=== PATIENT | male | born 1970 | race African-American/Black ===

== ENCOUNTER 2018-09-18 13:12 | Emergency (ER) | payer SELFPAY | END 2018-09-18 13:58 | disposition home or self-care (01) | LOC: NAV ERS 13:12 | DX: K62.89 Other specified diseases of anus and rectum (principal); K52.9 Noninfective gastroenteritis and colitis, unspecified; B37.9 Candidiasis, unspecified; B20 Human immunodeficiency virus [HIV] disease; Z79.899 Other long term (current) drug therapy | CPT/HCPCS: 99283 ==

== ENCOUNTER 2018-12-18 14:15 | Emergency (ER) | payer BC, SELFPAY | END 2018-12-18 14:50 | disposition home or self-care (01) | LOC: NAV ERS 14:15 | DX: H00.014 Hordeolum externum left upper eyelid (principal); B20 Human immunodeficiency virus [HIV] disease | CPT/HCPCS: 67700 ==

== ENCOUNTER 2018-12-21 16:34 | Emergency (ER) | payer BC ==
[2018-12-21 17:19] LABS: Bilirubin Negative (Negative); Blood, Urine Trace (Negative); Clarity Clear (Clear); Glucose, Urine (Dipstick) Negative (Negative); Leukocyte Negative (Negative); Nitrite Negative (Negative); Protein, Urine (Dipstick) Trace mg/dL (Neg-Trace); Urobilinogen 0.2 mg/dL (Less than 2)
[2018-12-21 17:44] LABS: #Basophils 0.1 thou/uL (0.0-0.2); #Eosinphils 0.3 thou/uL (0.0-0.7); #Neutrophils 3.6 thou/uL (1.40-6.50); %Basophils 1.2 % (0.0-1.0); %Lymphocytes 49.8 % (21.0-51.0); %Monocytes 10.3 % (0.0-10.0); %Neutrophils 35.7 % (42.0-75.0); ALT (SGPT) 76 U/L (8-55); AST (SGOT) 47 U/L (5-34); Albumin 3.7 g/dL (3.5-5.0); Alkaline Phosphatase 206 U/L (40-110); Anion Gap 13 mmol/L (10-20); BUN (Urea Nitrogen) 41 mg/dL (8.9-20.6); Bilirubin, Total 0.3 mg/dL (0.2-1.2); Calc. Creatinine Clearance 0 mL/min (70-130); Calcium 7.9 mg/dL (7.8-10.44); Carbon Dioxide 11 mmol/L (22-29); Chloride 117 mmol/L (98-107); Estimated GFR-MDRD 21; Globulin 4.1 g/dL (2.4-3.5); Glucose 96 mg/dL (70-105); Hemoglobin 10.8 g/dL (14.0-18.0); Mean Corpuscular HGB CONC 31.1 g/dL (32.0-36.0); Mean Corpuscular Hemoglobin 34.4 pg (27.0-31.0); Mean Platelet Volume 6.8 fL (7.4-10.4); Platelet Count 199 thou/uL (130-400); Protein, Total 7.8 g/dL (6.0-8.3); RBC Distribution Width 15.7 % (11.5-14.5); Red Blood Cell (RBC) Count 3.15 mill/uL (4.70-6.10); Sodium 138 mmol/L (136-145); White Blood Cell (WBC) Count 9.9 thou/uL (4.8-10.8)
[2018-12-21 17:53] LABS: Potassium 2.6 mmol/L (3.5-5.1)
[2018-12-21 17:56] LABS: Bacteria/HPF Rare-Few HPF (None Seen); RBC/HPF None Seen HPF (0-3); Squamous Epithelial 0-3 HPF (0-3); WBC/HPF None Seen HPF (0-3)
[2018-12-21 18:00] LABS: Blister Cells SLIGHT = 2-5 cells (100X) (0-1/hpf); Crenated RBC SLIGHT = 1-5 cells (100X) (None Seen); Helmet Cells SLIGHT = 2-5 cells (100X) (0-1/hpf); MDiff Complete? YES; Macrocytosis MODERATE=16-30 cells (100X) (0-5/hpf); Platelet Morphology Comment Appears Adequate; Poikilocytosis SLIGHT = 6-15 cells (100X) (0-5/hpf)
[2018-12-21] MEDS ORDERED: Potassium Chloride 10 MEQ/100 ML PREMIX BAG ONE ×2 (18:10→18:18)
== END 2018-12-21 19:08 | disposition short-term general hospital (02) ==
LOC: NAV ERS 16:34
DX: E87.6 Hypokalemia (principal); B20 Human immunodeficiency virus [HIV] disease; N17.9 Acute kidney failure, unspecified; N28.9 Disorder of kidney and ureter, unspecified; R19.7 Diarrhea, unspecified; I95.9 Hypotension, unspecified
CPT/HCPCS: 36415; 80053; 81003; 81015; 83735; 85025; 96365; J3480

== ENCOUNTER 2019-03-05 14:38 | Emergency (ER) | payer BC ==
[2019-03-05] MEDS ORDERED: Ondansetron PF 4 MG/2 ML Vial ONE (15:01)
[2019-03-05] MEDS ORDERED: Morphine 4 MG/ML VIAL ONE (15:03)
[2019-03-05] MEDS ORDERED: Sodium Chloride 0.9% 1,000 ML ONE (15:03)
[2019-03-05 15:44] LABS: ALT (SGPT) 46 U/L (8-55); AST (SGOT) 35 U/L (5-34); Alkaline Phosphatase 146 U/L (40-110); Anion Gap 12 mmol/L (10-20); BUN (Urea Nitrogen) 44 mg/dL (8.9-20.6); Bilirubin, Total 0.3 mg/dL (0.2-1.2); Calc. Creatinine Clearance 0 mL/min (70-130); Calcium 7.1 mg/dL (7.8-10.44); Carbon Dioxide 10 mmol/L (22-29); Chloride 123 mmol/L (98-107); Estimated GFR-MDRD 19; Globulin 3.7 g/dL (2.4-3.5); Glucose 100 mg/dL (70-105); Lipase 82 U/L (8-78); Protein, Total 6.7 g/dL (6.0-8.3); Sodium 142 mmol/L (136-145)
[2019-03-05 15:45] LABS: CK (CPK) 53 U/L (30-200); CRP (Inflammatory) Less than 0.50 mg/dL (= or < 0.5)
[2019-03-05 15:46] LABS: Potassium 2.5 mmol/L (3.5-5.1)
[2019-03-05 15:57] LABS: #Basophils 0.1 thou/uL (0.0-0.2); #Eosinphils 0.2 thou/uL (0.0-0.7); #Monocytes 0.9 thou/uL (0.11-0.59); #Neutrophils 3.6 thou/uL (1.40-6.50); %Eosinophils 1.7 % (0.0-10.0); %Lymphocytes 53.7 % (21.0-51.0); %Monocytes 8.8 % (0.0-10.0); %Neutrophils 34.8 % (42.0-75.0); Anisocytosis MARKED = >30 cells (100X) (0-5/hpf); Differential Comment SCANNED NO NBBC; Hemoglobin 7.9 g/dL (14.0-18.0); MDiff Complete? YES; Macrocytosis MARKED = >30 cells (100X) (0-5/hpf); Mean Corpuscular HGB CONC 31.8 g/dL (32.0-36.0); Mean Corpuscular Hemoglobin 33.9 pg (27.0-31.0); Mean Platelet Volume 7.4 fL (7.4-10.4); Platelet Count 173 thou/uL (130-400); Poikilocytosis SLIGHT = 6-15 cells (100X) (0-5/hpf); RBC Distribution Width 18.4 % (11.5-14.5); Red Blood Cell (RBC) Count 2.34 mill/uL (4.70-6.10); Target Cells MODERATE= 6-15 cells (100X) (0-1/hpf); Tear Drops SLIGHT = 2-5 cells (100X) (0-1/hpf); White Blood Cell (WBC) Count 10.3 thou/uL (4.8-10.8)
[2019-03-05] MEDS ORDERED: Potassium Chloride 10 MEQ/100 ML PREMIX BAG ONE (16:05)
[2019-03-05] MEDS ORDERED: Lactated Ringer's 1,000 ML ONE (16:14)
[2019-03-05] MEDS ORDERED: Fentanyl 100 MCG/2 ML VIAL ONE (16:17)
[2019-03-05 17:49] LABS: Base Excess (BEa) POC ABG -16.4 mmol/L (0 (+/- 2.5)); Hemoglobin POC ABG 7.5 g/dL (12.0-17.0); Potassium POC ABG 2.2 mmol/L (3.5-4.5); pH (Arterial) 7.239 (7.35-7.45)
[2019-03-05 17:50] LABS: Calcium, Ionized 1.15 mmol/L (1.15-1.33)
--- NOTE | 2019-03-05 18:03 | CT ---
CT abdomen and pelvis noncontrast HISTORY: Left flank pain. COMPARISON: 08/05/2018. FINDINGS: Moderate distention of the left renal collecting system and ureter is similar in appearance to the prior study. At the distal ureter, an oval calcification measuring 0.8 cm x 0.5 cm is now better delineated. The ureter remains distended beyond this point. This stone is favored to not be ca using an obstruction. At the inferior pole of the left kidney, calculi are 1.0 cm and 0.9 cm greatest diameters. Right renal collecting system, ureter, and urinary bladder are decompressed without stone apparent. Lack of contrast limits evaluation for other abnormalities. Tiny cyst at the posterior cortex of the right kidney. Tiny nonspecific calcified lesion at the right central lung base. IMPRESSION: Chronic left ureteral distention. An oval 0.8 cm calculus remains within the patulous dis angel left ureter. Favored to not be causing obstruction. Additional nonobstructing left renal calculi.
[2019-03-05 18:04] LABS: Bilirubin Negative (Negative); Blood, Urine Trace (Negative); Clarity Clear (Clear); Glucose, Urine (Dipstick) Negative (Negative); Leukocyte Negative (Negative); Nitrite Negative (Negative); Protein, Urine (Dipstick) 30 mg/dL (Neg-Trace); Urobilinogen 0.2 mg/dL (Less than 2)
[2019-03-05 18:14] LABS: Amphetamine Not Detected (NotDetected); Barbiturates Screen Not Detected (NotDetected); Benzodiazepine Screen Not Detected (NotDetected); Cocaine Metabolite Screen Not Detected (NotDetected); Medtox Control Line Valid? VALID (VALID); Methadone Not Detected (NotDetected); Methamphetamine Not Detected (NotDetected); Opiate Screen Detected (NotDetected); Oxycodone Screen Not Detected (NotDetected); Phencyclidine (PCP) Not Detected (NotDetected); THC/Cannabinoid Screen Not Detected (NotDetected); Tricyclic Screen Not Detected (NotDetected)
[2019-03-05 18:16] LABS: RBC/HPF None Seen HPF (0-3); WBC/HPF 0-3 HPF (0-3)
== END 2019-03-05 19:34 | disposition short-term general hospital (02) ==
LOC: NAV ERS 14:38
DX: E87.6 Hypokalemia (principal); N17.9 Acute kidney failure, unspecified; B20 Human immunodeficiency virus [HIV] disease; E86.9 Volume depletion, unspecified; N20.2 Calculus of kidney with calculus of ureter; Z79.899 Other long term (current) drug therapy
CPT/HCPCS: 74176; 80053; 80306; 81003; 81015; 82330; 82550; 82803; 83605; 83690; 83735; 85025; 86140; 93005; 96361; 96365; 96366; 96375; J2270; J2405; J3010; J3480; J7050; J7120

== ENCOUNTER 2019-06-13 16:20 | Emergency (ER) | payer BC ==
[2019-06-13 17:47] LABS: ALT (SGPT) 51 U/L (8-55); AST (SGOT) 44 U/L (5-34); Albumin 3.4 g/dL (3.5-5.0); Alkaline Phosphatase 138 U/L (40-110); Anion Gap 13 mmol/L (10-20); BUN (Urea Nitrogen) 30 mg/dL (8.9-20.6); Bilirubin, Total 0.2 mg/dL (0.2-1.2); CK (CPK) 39 U/L (30-200); Calc. Creatinine Clearance 0 mL/min (70-130); Calcium 7.7 mg/dL (7.8-10.44); Carbon Dioxide 11 mmol/L (22-29); Chloride 121 mmol/L (98-107); Estimated GFR-MDRD 26; Globulin 4.1 g/dL (2.4-3.5); Glucose 77 mg/dL (70-105); Potassium 4.3 mmol/L (3.5-5.1); Protein, Total 7.5 g/dL (6.0-8.3); Sodium 141 mmol/L (136-145)
[2019-06-13] MEDS ORDERED: Acetaminophen 500 MG TAB ONE (19:02)
== END 2019-06-13 20:30 | disposition home or self-care (01) ==
LOC: NAV ERS 16:20
DX: E86.0 Dehydration (principal); B20 Human immunodeficiency virus [HIV] disease; Z79.899 Other long term (current) drug therapy
CPT/HCPCS: 80053; 82550; 96360; 96361

== ENCOUNTER 2019-11-28 09:50 | Emergency (ER) | payer BC ==
[2019-11-28 11:02] LABS: #Eosinphils 0.1 thou/uL (0.0-0.7); #Neutrophils 4.4 thou/uL (1.40-6.50); %Basophils 0.6 % (0.0-1.0); %Eosinophils 0.7 % (0.0-10.0); %Lymphocytes 26.7 % (21.0-51.0); %Monocytes 12.9 % (0.0-10.0); Hemoglobin 8.8 g/dL (14.0-18.0); Mean Corpuscular HGB CONC 31.3 g/dL (32.0-36.0); Mean Corpuscular Hemoglobin 33.3 pg (27.0-31.0); Mean Platelet Volume 6.8 fL (7.4-10.4); Platelet Count 272 thou/uL (130-400); RBC Distribution Width 16.7 % (11.5-14.5); Red Blood Cell (RBC) Count 2.64 mill/uL (4.70-6.10); White Blood Cell (WBC) Count 7.5 thou/uL (4.8-10.8)
[2019-11-28 11:11] LABS: ALT (SGPT) 67 U/L (8-55); AST (SGOT) 52 U/L (5-34); Albumin 3.4 g/dL (3.5-5.0); Alkaline Phosphatase 143 U/L (40-110); Anion Gap 13 mmol/L (10-20); BUN (Urea Nitrogen) 45 mg/dL (8.9-20.6); Bilirubin, Total 0.3 mg/dL (0.2-1.2); Calc. Creatinine Clearance 0 mL/min (70-130); Calcium 6.8 mg/dL (7.8-10.44); Carbon Dioxide 11 mmol/L (22-29); Chloride 120 mmol/L (98-107); Estimated GFR-MDRD 25; Globulin 3.9 g/dL (2.4-3.5); Glucose 93 mg/dL (70-105); Magnesium 1.2 mg/dL (1.6-2.6); Protein, Total 7.3 g/dL (6.0-8.3); Sodium 141 mmol/L (136-145)
[2019-11-28 11:12] LABS: Potassium 2.7 mmol/L (3.5-5.1)
[2019-11-28] MEDS ORDERED: Magnesium 2 GM/50 ML BAG (IN WATER) ONE (11:27)
[2019-11-28] MEDS ORDERED: NS 0.9% w/ 20 MEQ KCL 1,000 ML ONE (11:29)
[2019-11-28 12:46] LABS: Phosphorus Less than 1.0 mg/dL (2.3-4.7)
== END 2019-11-28 14:40 | disposition short-term general hospital (02) ==
LOC: NAV ERS 09:50
DX: E87.6 Hypokalemia (principal); E83.42 Hypomagnesemia; E83.39 Other disorders of phosphorus metabolism; B20 Human immunodeficiency virus [HIV] disease; Z79.899 Other long term (current) drug therapy; Z87.442 Personal history of urinary calculi
CPT/HCPCS: 80053; 83735; 84100; 85025; 96365; 96366; 96368; J3475; J3480

== ENCOUNTER 2020-05-17 08:42 | Emergency (ER) | payer OTHER | END 2020-05-17 09:15 | disposition home or self-care (01) | LOC: NAV ERS 08:42 | DX: H00.15 Chalazion left lower eyelid (principal) | CPT/HCPCS: 99283 ==

== ENCOUNTER 2020-05-24 17:19 | Emergency (ER) | payer OTHER | END 2020-05-24 17:52 | disposition home or self-care (01) | LOC: NAV ERS 17:19 | DX: H00.15 Chalazion left lower eyelid (principal); R22.0 Localized swelling, mass and lump, head; Z21 Asymptomatic human immunodeficiency virus [HIV] infection status; G62.9 Polyneuropathy, unspecified; Z79.899 Other long term (current) drug therapy | CPT/HCPCS: 99283 ==

== ENCOUNTER 2020-05-28 20:50 | Emergency (ER) | payer OTHER, SELFPAY ==
[2020-05-28 21:52] LABS: ALT (SGPT) 105 U/L (8-55); AST (SGOT) 47 U/L (5-34); Albumin 3.1 g/dL (3.5-5.0); Alkaline Phosphatase 329 U/L (40-110); Anion Gap 12 mmol/L (10-20); BUN (Urea Nitrogen) 59 mg/dL (8.9-20.6); Bilirubin, Total 0.4 mg/dL (0.2-1.2); Calc. Creatinine Clearance 0 mL/min (70-130); Calcium 7.9 mg/dL (7.8-10.44); Chloride 120 mmol/L (98-107); Globulin 3.8 g/dL (2.4-3.5); Glucose 79 mg/dL (70-105); Magnesium 1.7 mg/dL (1.6-2.6); Potassium 6.2 mmol/L (3.5-5.1); Protein, Total 6.9 g/dL (6.0-8.3); Sodium 135 mmol/L (136-145)
[2020-05-28 21:54] LABS: Phosphorus 2.3 mg/dL (2.3-4.7)
[2020-05-28 22:03] LABS: Carbon Dioxide 9 mmol/L (22-29)
[2020-05-28 22:27] LABS: Anisocytosis MARKED = >30 cells (100X) (0-5/hpf); Band 1 % (5-11); Eosinophils 15 % (0-10); Hemoglobin 7.6 g/dL (14.0-18.0); Hypochromia SLIGHT = 6-15 cells (100X) (0-5/hpf); Lymphocytes 38 % (21-51); MDiff Complete? YES; Macrocytosis MARKED = >30 cells (100X) (0-5/hpf); Mean Corpuscular HGB CONC 28.2 g/dL (32.0-36.0); Mean Corpuscular Hemoglobin 34.2 pg (27.0-31.0); Mean Platelet Volume 6.9 fL (7.4-10.4); Monocytes 3 % (0-10); Neutrophil 43 % (42-75); Platelet Count 153 thou/uL (130-400); Platelet Morphology Comment Appears Adequate; Poikilocytosis SLIGHT = 6-15 cells (100X) (0-5/hpf); RBC Distribution Width 19.1 % (11.5-14.5); Red Blood Cell (RBC) Count 2.22 mill/uL (4.70-6.10); Target Cells SLIGHT = 2-5 cells (100X) (0-1/hpf); White Blood Cell (WBC) Count 7.1 thou/uL (4.8-10.8)
[2020-05-28 22:44] LABS: Bilirubin Negative (Negative); Blood, Urine Negative (Negative); Clarity Clear (Clear); Glucose, Urine (Dipstick) Negative (Negative); Ketone, Urine Negative (Negative); Leukocyte Negative (Negative); Nitrite Negative (Negative); Protein, Urine (Dipstick) 30 mg/dL (Neg-Trace); Specific Gravity, Urine 1.015 (1.005-1.030); Urobilinogen 0.2 mg/dL (Less than 2); pH, Urine 6.5 (5.0-9.0)
[2020-05-28 22:52] LABS: Squamous Epithelial 0-3 HPF (0-3)
[2020-05-28] MEDS ORDERED: Sodium Bicarb 50 MEQ/50 ML Abboject 8.4% SYRINGE ONE (22:54)
[2020-05-28] MEDS ORDERED: Dextrose 5% in Water 1,000 ML ONE (22:54)
== END 2020-05-29 00:10 | disposition short-term general hospital (02) ==
LOC: NAV ERS 20:50
DX: E87.5 Hyperkalemia (principal); I95.9 Hypotension, unspecified; K58.9 Irritable bowel syndrome, unspecified; Z21 Asymptomatic human immunodeficiency virus [HIV] infection status; G62.9 Polyneuropathy, unspecified; N18.9 Chronic kidney disease, unspecified; Z87.442 Personal history of urinary calculi; Z79.899 Other long term (current) drug therapy
CPT/HCPCS: 80053; 81003; 81015; 83735; 84100; 85025; 93005; 96365; J7070

== ENCOUNTER 2020-07-28 15:56 | Emergency (ER) | payer MEDICARE ==
[2020-07-28 17:15] LABS: #Basophils 0.1 thou/uL (0.0-0.2); #Eosinphils 0.6 thou/uL (0.0-0.7); #Lymphocytes 2.1 thou/uL (1.20-3.40); #Monocytes 0.7 thou/uL (0.11-0.59); #Neutrophils 2.7 thou/uL (1.40-6.50); %Basophils 1.2 % (0.0-1.0); %Eosinophils 10.4 % (0.0-10.0); %Lymphocytes 33.5 % (21.0-51.0); %Monocytes 11.4 % (0.0-10.0); %Neutrophils 43.5 % (42.0-75.0); Hemoglobin 6.5 g/dL (14.0-18.0); Mean Platelet Volume 8.2 fL (7.4-10.4); Platelet Count 119 thou/uL (130-400); RBC Distribution Width 19.7 % (11.5-14.5); Red Blood Cell (RBC) Count 1.97 mill/uL (4.70-6.10); White Blood Cell (WBC) Count 6.2 thou/uL (4.8-10.8)
[2020-07-28 17:24] LABS: ALT (SGPT) 79 U/L (8-55); AST (SGOT) 53 U/L (5-34); Albumin 3.1 g/dL (3.5-5.0); Alkaline Phosphatase 225 U/L (40-110); Anion Gap 13 mmol/L (10-20); BUN (Urea Nitrogen) 59 mg/dL (8.9-20.6); Bilirubin, Total 0.4 mg/dL (0.2-1.2); Calc. Creatinine Clearance 0 mL/min (70-130); Calcium 7.2 mg/dL (7.8-10.44); Carbon Dioxide 14 mmol/L (22-29); Chloride 120 mmol/L (98-107); Globulin 3.4 g/dL (2.4-3.5); Glucose 74 mg/dL (70-105); Magnesium 1.4 mg/dL (1.6-2.6); Potassium 4.3 mmol/L (3.5-5.1); Protein, Total 6.5 g/dL (6.0-8.3); Sodium 143 mmol/L (136-145)
[2020-07-28 17:27] LABS: Hypochromia SLIGHT = 6-15 cells (100X) (0-5/hpf); MDiff Complete? YES; Macrocytosis SLIGHT = 6-15 cells (100X) (0-5/hpf); Platelet Morphology Comment Appears Decreased
[2020-07-28 18:26] LABS: Bilirubin Negative (Negative); Blood, Urine Negative (Negative); Clarity Clear (Clear); Glucose, Urine (Dipstick) Negative (Negative); Ketone, Urine Negative (Negative); Leukocyte Negative (Negative); Nitrite Negative (Negative); Protein, Urine (Dipstick) 30 mg/dL (Neg-Trace); Specific Gravity, Urine 1.015 (1.005-1.030); Urobilinogen 0.2 mg/dL (Less than 2)
[2020-07-28 18:41] LABS: Bacteria/HPF None Seen HPF (None Seen); RBC/HPF 0-3 HPF (0-3); Squamous Epithelial 0-3 HPF (0-3); WBC/HPF None Seen HPF (0-3)
[2020-07-28] MEDS ORDERED: Sodium Chloride 0.9% 500 ML ONE ×2 (19:00→19:54)
== END 2020-07-28 20:45 | disposition short-term general hospital (02) ==
LOC: NAV ERS 15:56
DX: N18.9 Chronic kidney disease, unspecified (principal); D63.1 Anemia in chronic kidney disease; Z79.899 Other long term (current) drug therapy
CPT/HCPCS: 36415; 36430; 80053; 81003; 81015; 83735; 85025; 86850; 86900; 86901; 99291; J7030; P9016

== ENCOUNTER 2020-10-03 07:57 | Emergency (ER) | payer MEDICARE ==
[2020-10-03] MEDS ORDERED: Ondansetron PF 4 MG/2 ML Vial ONE (08:24)
[2020-10-03 08:57] LABS: ALT (SGPT) 101 U/L (8-55); AST (SGOT) 45 U/L (5-34); Albumin 3.3 g/dL (3.5-5.0); Alkaline Phosphatase 341 U/L (40-110); Anion Gap 11 mmol/L (10-20); BUN (Urea Nitrogen) 58 mg/dL (8.9-20.6); Bilirubin, Total 0.4 mg/dL (0.2-1.2); Calc. Creatinine Clearance 0 mL/min (70-130); Chloride 123 mmol/L (98-107); Glucose 76 mg/dL (70-105); Lipase 48 U/L (8-78); Magnesium 1.8 mg/dL (1.6-2.6); Potassium 4.5 mmol/L (3.5-5.1); Protein, Total 7.3 g/dL (6.0-8.3); Sodium 137 mmol/L (136-145)
[2020-10-03] MEDS ORDERED: Sodium Chloride 0.9% 1,000 ML BAG ONE (09:00)
[2020-10-03 09:06] LABS: Hemoglobin 9.5 g/dL (14.0-18.0); Mean Corpuscular HGB CONC 29.6 g/dL (32.0-36.0); Mean Corpuscular Hemoglobin 33.1 pg (27.0-31.0); Platelet Count 151 thou/uL (130-400); RBC Distribution Width 17.5 % (11.5-14.5); Red Blood Cell (RBC) Count 2.88 mill/uL (4.70-6.10); White Blood Cell (WBC) Count 11.9 thou/uL (4.8-10.8)
[2020-10-03 09:08] LABS: Anisocytosis SLIGHT = 6-15 cells (100X) (0-5/hpf); Eosinophils 5 % (0-10); Hypochromia SLIGHT = 6-15 cells (100X) (0-5/hpf); Lymphocytes 57 % (21-51); MDiff Complete? YES; Macrocytosis SLIGHT = 6-15 cells (100X) (0-5/hpf); Monocytes 7 % (0-10); Neutrophil 31 % (42-75); Platelet Morphology Comment Appears Adequate
[2020-10-03 09:28] LABS: Carbon Dioxide 8 mmol/L (22-29)
[2020-10-03] MEDS ORDERED: Sodium Bicarb 50 MEQ/50 ML Abboject 8.4% SYRINGE ONE (09:54)
== END 2020-10-03 11:23 | disposition left against medical advice (07) ==
LOC: NAV ERS 07:57
DX: N17.9 Acute kidney failure, unspecified (principal); E86.0 Dehydration; N18.9 Chronic kidney disease, unspecified; D63.1 Anemia in chronic kidney disease; I95.9 Hypotension, unspecified; Z21 Asymptomatic human immunodeficiency virus [HIV] infection status; Z79.899 Other long term (current) drug therapy
CPT/HCPCS: 80053; 83690; 83735; 85025; 96360; 96361; 96374; J2405; J7050

== ENCOUNTER 2020-10-10 10:04 | Emergency (ER) | payer MEDICARE ==
[2020-10-10] MEDS ORDERED: Acetaminophen 500 MG TAB ONE (10:39)
[2020-10-10] MEDS ORDERED: Sodium Chloride 0.9% 1,000 ML ONE ×3 (11:30→21:25)
[2020-10-10] MEDS ORDERED: Cyclobenzaprine 10 MG TAB ONE (11:30)
[2020-10-10 11:46] LABS: ALT (SGPT) 47 U/L (8-55); AST (SGOT) 34 U/L (5-34); Albumin 2.6 g/dL (3.5-5.0); Alkaline Phosphatase 154 U/L (40-110); Anion Gap 14 mmol/L (10-20); BUN (Urea Nitrogen) 69 mg/dL (8.9-20.6); Bilirubin, Total 0.5 mg/dL (0.2-1.2); Calc. Creatinine Clearance 0 mL/min (70-130); Calcium 7.4 mg/dL (7.8-10.44); Chloride 117 mmol/L (98-107); Globulin 3.8 g/dL (2.4-3.5); Glucose 65 mg/dL (70-105); Magnesium 1.3 mg/dL (1.6-2.6); Protein, Total 6.4 g/dL (6.0-8.3); Sodium 137 mmol/L (136-145)
[2020-10-10 11:53] LABS: Hemoglobin 7.6 g/dL (14.0-18.0); MDiff Complete? YES; Mean Corpuscular HGB CONC 31.3 g/dL (32.0-36.0); Mean Corpuscular Hemoglobin 33.3 pg (27.0-31.0); Mean Platelet Volume 6.3 fL (7.4-10.4); Platelet Count 69 thou/uL (130-400); RBC Distribution Width 16.5 % (11.5-14.5); Red Blood Cell (RBC) Count 2.28 mill/uL (4.70-6.10); White Blood Cell (WBC) Count 20.4 thou/uL (4.8-10.8)
[2020-10-10 11:54] LABS: Anisocytosis SLIGHT = 6-15 cells (100X) (0-5/hpf); Crenated RBC SLIGHT = 1-5 cells (100X) (None Seen); Hypochromia SLIGHT = 6-15 cells (100X) (0-5/hpf); Lymphocytes 14 % (21-51); Macrocytosis SLIGHT = 6-15 cells (100X) (0-5/hpf); Monocytes 5 % (0-10); Neutrophil 81 % (42-75); Platelet Morphology Comment Appears Decreased; Spherocytes SLIGHT = 1-5 cells (100X) (None Seen)
[2020-10-10] MEDS ORDERED: Magnesium 2 GM/50 ML BAG (IN WATER) ONE (12:01)
[2020-10-10 12:02] LABS: Carbon Dioxide 9 mmol/L (22-29)
[2020-10-10] MEDS ORDERED: Sodium Chloride 0.9% 100 ML ONE (12:36)
[2020-10-10] MEDS ORDERED: cefTRIAXone\\ROCEPHIN 1 GM VIAL ONE (12:36)
[2020-10-10 12:46] LABS: Bilirubin Negative (Negative); Blood, Urine Moderate (Negative); Clarity Turbid (Clear); Glucose, Urine (Dipstick) Negative (Negative); Ketone, Urine Negative (Negative); Leukocyte Large (Negative); Nitrite Positive (Negative); Protein, Urine (Dipstick) > or equal to 300 mg/dL (Neg-Trace); Urobilinogen 0.2 mg/dL (Less than 2); pH, Urine 5.5 (5.0-9.0)
[2020-10-10 12:52] LABS: Squamous Epithelial None Seen HPF (0-3); Transitional Epithelial None Seen HPF (None Seen); WBC/HPF Greater Than 50 HPF (0-3)
[2020-10-10 12:53] LABS: Bacteria/HPF 3+ HPF (None Seen); Mucous/LPF 2+ LPF (<2+)
[2020-10-10 15:29] LABS: Lactic Acid 1.8 mmol/L (0.5-2.2)
[2020-10-10 16:38] LABS: SARS-CoV-2 NAA Rapid Test Not Detected (NotDetected)
[2020-10-11 00:17] LABS: Anion Gap 12 mmol/L (10-20); BUN (Urea Nitrogen) 67 mg/dL (8.9-20.6); Calc. Creatinine Clearance 0 mL/min (70-130); Calcium 7.1 mg/dL (7.8-10.44); Chloride 123 mmol/L (98-107); Glucose 65 mg/dL (70-105); Sodium 142 mmol/L (136-145)
[2020-10-11 00:21] LABS: Carbon Dioxide 9 mmol/L (22-29); Potassium 2.4 mmol/L (3.5-5.1)
[2020-10-11] MEDS ORDERED: Potassium Chloride 20 MEQ TAB ONE ×2 (01:03→09:08)
[2020-10-11] MEDS ORDERED: Ondansetron ODT 4 MG TAB ONE (01:08)
[2020-10-11] MEDS ORDERED: Ondansetron PF 4 MG/2 ML Vial ONE ×2 (01:09)
[2020-10-11] MEDS ORDERED: Sodium Bicarb 50 MEQ/50 ML Abboject 8.4% SYRINGE ONE (01:59)
[2020-10-11] MEDS ORDERED: Cyclobenzaprine 10 MG TAB ONE (02:19)
[2020-10-11] MEDS ORDERED: Dextrose 5% in Water 1,000 ML ONE (02:27)
[2020-10-11] MEDS ORDERED: Acetaminophen 500 MG TAB ONE (06:58)
[2020-10-11 08:50] LABS: ALT (SGPT) 35 U/L (8-55); AST (SGOT) 27 U/L (5-34); Albumin 2.2 g/dL (3.5-5.0); Alkaline Phosphatase 120 U/L (40-110); Anion Gap 11 mmol/L (10-20); BUN (Urea Nitrogen) 65 mg/dL (8.9-20.6); Bilirubin, Total 0.5 mg/dL (0.2-1.2); Calc. Creatinine Clearance 0 mL/min (70-130); Calcium 7.3 mg/dL (7.8-10.44); Carbon Dioxide 10 mmol/L (22-29); Chloride 122 mmol/L (98-107); Globulin 3.1 g/dL (2.4-3.5); Glucose 87 mg/dL (70-105); Protein, Total 5.3 g/dL (6.0-8.3); Sodium 140 mmol/L (136-145)
[2020-10-11 08:56] LABS: Potassium 2.6 mmol/L (3.5-5.1)
[2020-10-11 09:00] LABS: Hemoglobin 6.8 g/dL (14.0-18.0); Mean Corpuscular HGB CONC 32.7 g/dL (32.0-36.0); Mean Corpuscular Hemoglobin 33.9 pg (27.0-31.0); Platelet Count 145 thou/uL (130-400); RBC Distribution Width 15.8 % (11.5-14.5); Red Blood Cell (RBC) Count 1.99 mill/uL (4.70-6.10); White Blood Cell (WBC) Count 26.6 thou/uL (4.8-10.8)
[2020-10-11 09:01] LABS: Anisocytosis SLIGHT = 6-15 cells (100X) (0-5/hpf); Band 6 % (5-11); Crenated RBC SLIGHT = 1-5 cells (100X) (None Seen); Hypochromia SLIGHT = 6-15 cells (100X) (0-5/hpf); Lymphocytes 10 % (21-51); MDiff Complete? YES; Macrocytosis SLIGHT = 6-15 cells (100X) (0-5/hpf); Monocytes 5 % (0-10); Neutrophil 79 % (42-75); Platelet Morphology Comment Appears Adequate
[2020-10-11] MEDS ORDERED: Potassium Chloride 10 MEQ/100 ML PREMIX BAG ONE (09:08)
[2020-10-11] MEDS ORDERED: Sodium Chloride 0.9% 1,000 ML ONE (09:09)
[2020-10-11] MEDS ORDERED: Sodium Chloride 0.9% 250 ML 250 ML ONE (09:27)
== END 2020-10-11 10:43 | disposition short-term general hospital (02) ==
LOC: NAV ERS 10:04
DX: A41.9 Sepsis, unspecified organism (principal); N28.9 Disorder of kidney and ureter, unspecified; D64.9 Anemia, unspecified; D69.6 Thrombocytopenia, unspecified; N39.0 Urinary tract infection, site not specified; Z20.822 Contact with and (suspected) exposure to COVID-19; Z79.899 Other long term (current) drug therapy
CPT/HCPCS: 71045; 80048; 80053 ×2; 83605; 83735; 84484; 85025; 87040; 87077; 87086; 87186; 93005; 94760; U0002; 36415; 81003; 81015; 96365; 96367; 96368; 96375; J0696; J2405; J3370; J3475; J3480; J3490; J7050; J7070; Q0162

== ENCOUNTER 2020-11-18 14:36 | Outpatient (CLI) | payer MEDICARE ==
[2020-11-18 14:48] LABS: Bilirubin Negative (Negative); Blood, Urine Moderate (Negative); Clarity Cloudy (Clear); Glucose, Urine (Dipstick) Negative (Negative); Ketone, Urine Negative (Negative); Leukocyte Small (Negative); Nitrite Negative (Negative); Protein, Urine (Dipstick) > or equal to 300 mg/dL (Neg-Trace); Urobilinogen 0.2 mg/dL (Less than 2)
[2020-11-18 15:01] LABS: Bacteria/HPF 2+ HPF (None Seen); Mucous/LPF 1+ LPF (<2+); WBC/HPF Greater Than 50 HPF (0-3); Yeast-Budding 2+ HPF (None Seen)
== END 2020-11-18 14:37 | disposition home or self-care (01) ==
LOC: NAV LABSP 14:36
PROVIDERS: ATTEND Student in an Organized Health Care Education/Training Program
DX: N39.0 Urinary tract infection, site not specified (principal)
CPT/HCPCS: 81001

== ENCOUNTER 2021-02-15 14:43 | Emergency (ER) | payer MEDICARE ==
[2021-02-15] MEDS ORDERED: Sodium Chloride 0.9% 1,000 ML ONE (16:09)
[2021-02-15 16:18] LABS: ALT (SGPT) 44 U/L (8-55); AST (SGOT) 42 U/L (5-34); Albumin 2.8 g/dL (3.5-5.0); Alkaline Phosphatase 188 U/L (40-110); Anion Gap 13 mmol/L (10-20); BUN (Urea Nitrogen) 59 mg/dL (8.4-25.7); Bilirubin, Total 0.4 mg/dL (0.2-1.2); CK (CPK) 29 U/L (30-200); Calc. Creatinine Clearance 0 mL/min (70-130); Calcium 7.7 mg/dL (7.8-10.44); Carbon Dioxide 10 mmol/L (22-29); Chloride 117 mmol/L (98-107); Globulin 4.5 g/dL (2.4-3.5); Glucose 88 mg/dL (70-105); Potassium 3.4 mmol/L (3.5-5.1); Protein, Total 7.3 g/dL (6.0-8.3); Sodium 137 mmol/L (136-145)
[2021-02-15 16:19] LABS: Magnesium 1.5 mg/dL (1.6-2.6)
[2021-02-15 16:31] LABS: Hemoglobin 6.4 g/dL (14.0-18.0); Mean Corpuscular HGB CONC 30.5 g/dL (32.0-36.0); Platelet Count 196 thou/uL (130-400); RBC Distribution Width 17.5 % (11.5-14.5); Red Blood Cell (RBC) Count 1.81 mill/uL (4.70-6.10); White Blood Cell (WBC) Count 6.8 thou/uL (4.8-10.8)
[2021-02-15 16:33] LABS: Phosphorus Less than 1.0 mg/dL (2.3-4.7)
[2021-02-15 16:34] LABS: Anisocytosis SLIGHT = 6-15 cells (100X) (0-5/hpf); Hypochromia SLIGHT = 6-15 cells (100X) (0-5/hpf); Lymphocytes 18 % (21-51); MDiff Complete? YES; Manual Diff?? YES; Monocytes 5 % (0-10); Neutrophil 77 % (42-75)
[2021-02-15 16:35] LABS: Ovalocytes SLIGHT = 2-5 cells (100X) (0-1/hpf); Schistocytes SLIGHT = 2-5 cells (100X) (0-1/hpf)
[2021-02-15 16:36] LABS: Critical Call Chemistry Y
[2021-02-15] MEDS ORDERED: Magnesium 2 GM/50 ML BAG (IN WATER) ONE (17:12)
[2021-02-15] MEDS ORDERED: Dextrose 5% in Water 1,000 ML ONE (17:18)
[2021-02-15] MEDS ORDERED: Sodium Bicarb 50 MEQ/50 ML Abboject 8.4% SYRINGE ONE (17:18)
== END 2021-02-15 18:45 | disposition short-term general hospital (02) ==
LOC: NAV ERS 14:43
DX: E86.0 Dehydration (principal); N18.9 Chronic kidney disease, unspecified; D63.1 Anemia in chronic kidney disease; E87.6 Hypokalemia; E83.39 Other disorders of phosphorus metabolism; B20 Human immunodeficiency virus [HIV] disease; Z79.899 Other long term (current) drug therapy
CPT/HCPCS: 36415; 80053; 82550; 83605; 83735; 84100; 85025; 93005; 94760; 96365; 96367; J3475; J7050; J7070

== ENCOUNTER 2021-03-03 14:51 | Emergency (ER) | payer MEDICARE ==
[2021-03-04 17:11] LABS: SARS-CoV-2 PCR by NAA DETECTED (NotDetected)
== END 2021-03-03 15:27 | disposition home or self-care (01) ==
LOC: NAV ERS 14:51
DX: U07.1 COVID-19 (principal)
CPT/HCPCS: 99283; U0003; U0005

== ENCOUNTER 2021-03-23 11:28 | Emergency (ER) | payer MEDICARE ==
[2021-03-23] MEDS ORDERED: Acetaminophen 500 MG TAB ONE (11:46)
[2021-03-23 12:37] LABS: ALT (SGPT) 22 U/L (8-55); AST (SGOT) 43 U/L (5-34); Albumin 2.2 g/dL (3.5-5.0); Alkaline Phosphatase 213 U/L (40-110); Anion Gap 11 mmol/L (10-20); BUN (Urea Nitrogen) 53 mg/dL (8.4-25.7); Bilirubin, Total 0.4 mg/dL (0.2-1.2); Calc. Creatinine Clearance 0 mL/min (70-130); Calcium 7.3 mg/dL (7.8-10.44); Carbon Dioxide 17 mmol/L (22-29); Chloride 111 mmol/L (98-107); Globulin 3.8 g/dL (2.4-3.5); Glucose 91 mg/dL (70-105); Lipase 48 U/L (8-78); Potassium 5.2 mmol/L (3.5-5.1); Sodium 134 mmol/L (136-145)
[2021-03-23 12:39] LABS: #Eosinphils 2.1 thou/uL (0.0-0.7); #Lymphocytes 1.1 thou/uL (1.20-3.40); #Monocytes 0.9 thou/uL (0.11-0.59); #Neutrophils 5.2 thou/uL (1.40-6.50); %Basophils 0.3 % (0.0-1.0); %Eosinophils 22.6 % (0.0-10.0); %Lymphocytes 11.7 % (21.0-51.0); %Monocytes 9.5 % (0.0-10.0); %Neutrophils 55.8 % (42.0-75.0); Hemoglobin 7.6 g/dL (14.0-18.0); MDiff Complete? YES; Mean Corpuscular HGB CONC 30.7 g/dL (32.0-36.0); Mean Corpuscular Hemoglobin 33.7 pg (27.0-31.0); Mean Platelet Volume 6.4 fL (7.4-10.4); Platelet Count 92 thou/uL (130-400); RBC Distribution Width 15.6 % (11.5-14.5); Red Blood Cell (RBC) Count 2.25 mill/uL (4.70-6.10); White Blood Cell (WBC) Count 9.3 thou/uL (4.8-10.8)
[2021-03-23 12:40] LABS: Anisocytosis SLIGHT = 6-15 cells (100X) (0-5/hpf); Hypochromia SLIGHT = 6-15 cells (100X) (0-5/hpf); Macrocytosis SLIGHT = 6-15 cells (100X) (0-5/hpf); Ovalocytes SLIGHT = 2-5 cells (100X) (0-1/hpf); Platelet Morphology Comment Appears Decreased; Tear Drops SLIGHT = 2-5 cells (100X) (0-1/hpf)
[2021-03-23] MEDS ORDERED: Amoxicillin/Potassium Clav 500 MG TAB ONE (13:32)
== END 2021-03-23 13:34 | disposition home or self-care (01) ==
LOC: NAV ERS 11:28
DX: J18.9 Pneumonia, unspecified organism (principal); N18.4 Chronic kidney disease, stage 4 (severe); D63.1 Anemia in chronic kidney disease; E87.5 Hyperkalemia; B20 Human immunodeficiency virus [HIV] disease; G62.9 Polyneuropathy, unspecified; Z79.899 Other long term (current) drug therapy
CPT/HCPCS: 71045; 80053; 83690; 84484; 85025; 93005

== ENCOUNTER 2021-04-05 08:26 | Emergency (ER) | payer MEDICARE ==
[2021-04-05] MEDS ORDERED: Dextrose 30 ML TUBE ONE (08:44)
[2021-04-05] MEDS ORDERED: Dextrose 50% Abboject 50 ML SYRINGE ONE (08:45)
[2021-04-05] MEDS ORDERED: Sodium Chloride 0.9% 1,000 ML ONE ×4 (08:48→11:19)
[2021-04-05] MEDS ORDERED: Dextrose 5 % And 0.9 % NaCl 1,000 ML ONE ×2 (08:53→11:54)
[2021-04-05 09:21] LABS: ALT (SGPT) 59 U/L (8-55); AST (SGOT) 424 U/L (5-34); Albumin 1.9 g/dL (3.5-5.0); Alkaline Phosphatase 351 U/L (40-110); BUN (Urea Nitrogen) 88 mg/dL (8.4-25.7); Bilirubin, Total 0.3 mg/dL (0.2-1.2); Calc. Creatinine Clearance 0 mL/min (70-130); Calcium 7.4 mg/dL (7.8-10.44); Chloride 109 mmol/L (98-107); Globulin 4.2 g/dL (2.4-3.5); Glucose 218 mg/dL (70-105); Potassium 5.4 mmol/L (3.5-5.1); Protein, Total 6.1 g/dL (6.0-8.3); Sodium 128 mmol/L (136-145)
[2021-04-05 09:23] LABS: Carbon Dioxide 8 mmol/L (22-29)
[2021-04-05 09:26] LABS: #Eosinphils 0.1 thou/uL (0.0-0.7); #Lymphocytes 0.4 thou/uL (1.20-3.40); #Monocytes 0.1 thou/uL (0.11-0.59); #Neutrophils 4.5 thou/uL (1.40-6.50); %Basophils 0.3 % (0.0-1.0); %Lymphocytes 7.9 % (21.0-51.0); %Monocytes 1.2 % (0.0-10.0); %Neutrophils 88.6 % (42.0-75.0); Hemoglobin 7.9 g/dL (14.0-18.0); Mean Corpuscular Hemoglobin 33.1 pg (27.0-31.0); Platelet Count 136 thou/uL (130-400); RBC Distribution Width 15.5 % (11.5-14.5); White Blood Cell (WBC) Count 5.1 thou/uL (4.8-10.8)
[2021-04-05 09:38] LABS: CKMB 5.9 ng/mL (0-6.6)
[2021-04-05] MEDS ORDERED: Sodium Bicarb 50 MEQ/50 ML Abboject 8.4% SYRINGE ONE ×2 (10:19→10:20)
[2021-04-05 10:21] LABS: Base Excess-Venous -21.2 mmol/L (-2.0 to 3.0); Potassium 4.7 mmol/L (3.5-5.1); Sodium 134 mmol/L (138-145); vO2 Saturation-calc 98.5 % (60.0-85.0)
[2021-04-05 10:22] LABS: Calcium, Ionized 1.08 mmol/L (1.15-1.33); Chloride 114 mmol/L (98-107); T. Carbon Dioxide 7.7 mmol/L (22.0-28.0)
[2021-04-05 10:23] LABS: CO2 Tension (PvCO2) 23.7 mmHg (42.0-51.0)
[2021-04-05 10:24] LABS: Hemoglobin - Calc 6.1 g/dL (14.0-18.0)
[2021-04-05 10:27] LABS: Bilirubin Negative (Negative); Blood, Urine Large (Negative); Clarity Clear (Clear); Glucose, Urine (Dipstick) Negative (Negative); Ketone, Urine Negative (Negative); Leukocyte Small (Negative); Nitrite Negative (Negative); Protein, Urine (Dipstick) 100 mg/dL (Neg-Trace); Specific Gravity, Urine 1.015 (1.005-1.030); Urobilinogen 0.2 mg/dL (Less than 2)
[2021-04-05 10:29] LABS: Bacteria/HPF Rare-Few HPF (None Seen); Squamous Epithelial 0-3 HPF (0-3)
[2021-04-05 12:37] LABS: BUN (Urea Nitrogen) 74 mg/dL (8.4-25.7); Calc. Creatinine Clearance 0 mL/min (70-130); Calcium 6.7 mg/dL (7.8-10.44); Chloride 117 mmol/L (98-107); Glucose 220 mg/dL (70-105); Potassium 4.4 mmol/L (3.5-5.1); Sodium 136 mmol/L (136-145)
[2021-04-05 12:42] LABS: Carbon Dioxide Less than 8 mmol/L (22-29)
[2021-04-05 12:42] LABS: Bicarbonate (HCO3v) 7.4 mmol/L (22.0-28.0); CO2 Tension (PvCO2) 14.3 mmHg (42.0-51.0); Calcium, Ionized 0.98 mmol/L (1.15-1.33); Chloride 118 mmol/L (98-107); Hemoglobin - Calc 6.6 g/dL (14.0-18.0); Potassium 4.6 mmol/L (3.5-5.1); Sodium 138 mmol/L (138-145); T. Carbon Dioxide 7.8 mmol/L (22.0-28.0); vO2 Saturation-calc 99.3 % (60.0-85.0)
== END 2021-04-05 12:21 | disposition short-term general hospital (02) ==
LOC: NAV ERS 08:26
DX: E86.0 Dehydration (principal); E87.2 Acidosis; N18.9 Chronic kidney disease, unspecified; D63.1 Anemia in chronic kidney disease; K58.9 Irritable bowel syndrome, unspecified; G62.9 Polyneuropathy, unspecified; Z86.16 Personal history of COVID-19; Z21 Asymptomatic human immunodeficiency virus [HIV] infection status; Z87.442 Personal history of urinary calculi; Z79.899 Other long term (current) drug therapy
CPT/HCPCS: 36416; 71045; 80053; 81003; 81015; 82330; 82553; 82803; 83605; 84484; 85025; 87040; 93005; 96365; 96375; 96376; 36415-59; J7042; J7050